=== PATIENT | male | born 1980 | race Caucasian/White ===

== ENCOUNTER 2020-10-01 07:04 | Emergency (ER) | payer MEDICAID, OTHER ==
[2020-10-01] MEDS ORDERED: Ketorolac 15 MG/ML SDV IM ONE (07:29)
--- NOTE | 2020-10-01 08:19 | CR ---
INDICATION: Fall with right lateral rib pain TECHNIQUE: Single view chest with AP and Oblique views right chest COMPARISON: None available. FINDINGS: There is no dense consolidation, effusion, or pneumothorax. The cardiomediastinal silhouette is within normal limits. There is no evidence of displaced rib fracture. The bony thorax is otherwise intact. IMPRESSION: No acute cardiopulmonary abnormality. No displaced rib fracture is appreciated. If pain and clinical symptoms persist, subtle, non-displaced injuries are not entirely excluded. Dictated by Donte Talley MD @ 10/01/2020 8:18:[address] Donte Talley @ Oct 01 2020 8:18AM
--- NOTE | 2020-10-01 08:23 | EDM.PDOC ---
ED HPI GENERAL MEDICAL PROBLEM - General Chief Complaint: General Stated Complaint: POSSIBLE BROKEN RIBS Time Seen by Provider: 10/01/20 07:20 - History of Present Illness INITIAL COMMENTS - FREE TEXT/NARRATIVE: CHIEF COMPLAINT(S): Rib pain HISTORY OF PRESENT ILLNESS: This is a 40-year-old man with morbid obesity who presents to the emergency department chief complaint of rib pain. The patient states that he has had rib fractures in the past. He states that while at work he fell over a pipe landing on another pipe on the right side of his chest wall and his neck. Same right-sided rib pain. He states that the pain is exacerbated by deep breathing. He feels it along the entire right lateral side. He rates his pain as 7 out of 10 without any radiation. He states that he has not tried any pain medications for this except for some Tylenol. He denies any head injury or loss of consciousness. There are no relieving factors. He denies any chest pain. REVIEW OF SYSTEMS: Constitutional: Denies fever, chills. Eyes: Denies eye pain Ears, Nose, Mouth, & Throat: Denies earache Cardiovascular: Positive for right-sided chest wall pain. Denies chest pain Respiratory: Denies shortness of breath Gastrointestinal: Denies Nausea, vomiting, diarrhea, hematochezia. Genitourinary: Denies hematuria Skin:Denies a rash MSK: Denies joint pain Neurological: Denies blurred vision, numbness, tingling, weakness Psychiatric: Denies depression PAST MEDICAL HISTORY: As per history of present illness and as reviewed below otherwise noncontributory. SURGICAL HISTORY: As per history of present illness and as reviewed below otherwise noncontributory. SOCIAL HISTORY: As per history of present illness and as reviewed below otherwise noncontributory. FAMILY HISTORY: As per history of present illness and as reviewed below otherwise noncontributory. EXAMINATION OF ORGAN SYSTEMS/BODY AREAS: Constitutional: Blood pressure is 163/91, heart rate 80, respiratory rate 22 with an oxygen saturation 94% on room air. Temperature 36.2 General: Morbidly obese gentleman who is in no acute distress. Psychiatric: Appropriate mood and affect. Eyes: No scleral icterus or conjunctival erythema ENMT: Moist mucous membranes. No pharyngeal erythema Cardiovascular: Regular, rate, and rhythm. No gallops, murmurs, or rubs. Bilateral upper extremity pulses symmetric and intact. No peripheral edema. No JVD. The right-sided chest wall is tender to palpation in the lower rib area. No obvious deformity. No overlying skin changes. No skin tenting. Respiratory: Lungs clear to auscultation bilaterally. No wheezes, rales, or rhonchi. Gastrointestinal: Soft, non-tender, non-distended. Normoactive bowel sounds Genitourinary: No suprapubic tenderness Musculoskeletal: Normal range of motion. Skin: No lesions or abrasions. Neurological: Alert, GCS 15 MEDICAL DECISION MAKING AND COURSE IN THE ED WITH INTERPRETATION/REVIEW OF DIAGNOSTIC STUDIES: This is a 40-year-old man with a past medical history of ruiz or left-sided rib fractures who presents to the emergency department with injury to his right sided rib cage who is experiencing pleuritic chest pain for which he is concerned about rib fractures. At this time we will obtain a rib with chest x-ray on the right side to evaluate. We will provide the patient with Toradol for pain relief. Patient was amenable to this plan. The radiological images were viewed by myself along with reading the report from the radiologist. Rib with chest x-ray does not reveal any fractures or acute cardiopulmonary process. I did discuss with the patient that the sensitivity of rib fractures were chest x-ray is not 100% and that they can be missed. I did discuss that given his pain treatment is still the same. Encourage the patient to use Tylenol, Motrin, ice to the affected area 20 minutes 4 times a day and to use an incentive spirometer. He is to return for any new or worsening symptoms. He was amenable to discharge and had no further questions DISPOSITION: The patient was discharged home in stable condition. The patient will follow up with primary care physician in 3 to 5 days CONDITION: Fair PROCEDURES: None FINAL IMPRESSION(S)/DIAGNOSES: 1. Acute right-sided rib pain secondary to rib contusion versus fracture Richie Mckee M.D. R side chest Pain Score (Numeric/FACES): 7 - Related Data Allergies Allergy/AdvReac Type Severity Reaction Status Date / Time No Known Allergies Allergy Verified 10/01/20 07:14 Home Meds: Home Meds . 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 Neurological History: Reports: None Psychiatric History: Reports: None Endocrine/Metabolic History: Reports: Obesity/BMI 30+ Hematologic History: Reports: None Immunologic History: Reports: None Oncologic (Cancer) History: Reports: None Dermatologic History: Reports: None - Infectious Disease History Infectious Disease History: Reports: Chicken Pox - Past Surgical History Head Surgeries/Procedures: Reports: None Cardiovascular Surgical History: Reports: Vascular Surgery Endocrine Surgical History: Reports: None Musculoskeletal Surgical History: Reports: Other (See Below) Other Musculoskeletal Surgeries/Procedures:: 11 sx to R leg Social & Family History - Family History Family Medical History: No Pertinent Family History - Tobacco Use Tobacco Use Status *Q: Current Every Day Tobacco User Years of Tobacco use: 10 Packs/Tins Daily: 0.7 - Caffeine Use Caffeine Use: Reports: None - Recreational Drug Use Recreational Drug Use: No ED ROS GENERAL - Review of Systems Review Of Systems: See Below ED EXAM, GENERAL - Physical Exam Exam: See Below Course - Vital Signs Last Recorded V/S: Last Vital Signs Temp 36.4 C 10/01/20 08:34 Pulse 78 10/01/20 08:34 Resp 20 10/01/20 08:34 BP 144/76 H 10/01/20 08:34 Pulse Ox 92 L 10/01/20 08:34 - Orders/Labs/Meds Meds: Medications Discontinued Medications Generic Name Dose Route Start Last Admin Trade Name Nasir PRN Reason Stop Dose Admin Ketorolac Tromethamine 15 mg 10/01/20 07:29 10/01/20 08:11 Ketorolac 15 Mg/Ml Sdv IM 10/01/20 07:30 15 mg ONETIME ONE Administration Departure - Departure Time of Disposition: 08:23 Disposition: Home, Self-Care 01 Condition: Fair Clinical Impression: Contusion of rib on right side - Discharge Information *PRESCRIPTION DRUG MONITORING PROGRAM REVIEWED*: No *COPY OF PRESCRIPTION DRUG MONITORING REPORT IN PATIENT DIVYA: No Instructions: Rib Contusion Referrals: PCP,None [Primary Care Provider] - Forms: ED Department Discharge Additional Instructions: Your evaluated today on an emergent basis. At this time your x-ray did not reveal any obvious fractures of your ribs. As discussed small rib fractures can be missed on x-ray. Therefore treatment is still the same. I recommend use Tylenol Motrin and icing the area 20 minutes 4 times a day. I recommend that you use Voltaren or lidocaine cream for pain relief and use the incentive spirometer multiple times throughout the hour. If you have any worsening pain, cough, fever I like you to return to the emergency department. Follow-up with your primary care physician in 3 to 5 days Please use: Tylenol 500-1000mg every 6 hours (DO NOT TAKE MORE THAN 4000mg in 1 day) Ibuprofen 400mg every 6 hours (Take with food as it can cause ulcers, GI upset) Example schedule: 8:00 AM (Tylenol 500-1000mg) 11:00 AM (Ibuprofen 400mg) 2:00 PM (Tylenol 500-1000mg) 5:00 PM (Ibuprofen 400mg) In addition to Tylenol and Motrin you may use over the counter creams such as Voltaren Cream or Lidocaine Cream (Lidoderm) as needed 4 times a day for symptomatic relief. Ice the area 20 minutes 4 times per day [facility] [address] [place] [address] [place] [address] The patient is informed of any results of their evaluation and diagnostic workup and all questions are answered. They are given discharge instructions and return precautions. The patient is stable for discharge. The patient states they understand and agree with the plan and that they will return if their symptoms get worse or if they have any new concerns. The following information is given to patients seen in the emergency department who are being discharged to home. This information is to outline your options for follow-up care. We provide all patients seen in our emergency department with a follow-up referral. The need for follow-up, as well as the timing and circumstances, are variable depending upon the specifics of your emergency department visit. If you don't have a primary care physician on staff, we will provide you with a referral. We always advise you to contact your personal physician following an emergency department visit to inform them of the circumstance of the visit and for follow-up with them and/or the need for any referrals to a consulting specialist. The emergency department will also refer you to a specialist when appropriate. This referral assures that you have the opportunity for follow-up care with a specialist. All of these measure are taken in an effort to provide you with optimal care, which includes your follow-up. Under all circumstances we always encourage you to contact your private physician who remains a resource for coordinating your care. When calling for follow-up care, please make the office aware that this follow-up is from your recent emergency room visit. If for any reason you are refused follow-up, please contact the [facility] Emergency Department at and asked to speak to the emergency department charge nurse. Sepsis Event Note (ED) - Evaluation Sepsis Screening Result: No Definite Risk
== END 2020-10-01 08:35 | disposition home or self-care (01) ==
LOC: MW.ED 07:04
DX: S20.211A Contusion of right front wall of thorax, initial encounter (principal); E66.01 Morbid (severe) obesity due to excess calories; Z68.43 Body mass index [BMI] 50.0-59.9, adult; Z72.0 Tobacco use; W18.30XA Fall on same level, unspecified, initial encounter; Y92.89 Other specified places as the place of occurrence of the external cause; Y99.0 Civilian activity done for income or pay
CPT/HCPCS: 71101; 96372; 99283; J1885